=== PATIENT | male | born 1965 | race Two or more races ===

== ENCOUNTER 2017-11-04 11:55 | Emergency (ER) | payer MEDICAID ==
[2017-11-04] MEDS ORDERED: TDAP ADULT 0.5 ML INJ (BOOSTRIX) IM ONE (12:10)
--- NOTE | 2017-11-04 12:49 | EDPHY ---
General Time Seen by Provider: 11/04/17 12:32 Narrative: CHIEF COMPLAINT: Laceration to abdomen HISTORY OF PRESENT ILLNESS: Patient presents with complaints of accidental laceration to the abdomen. He was working in the yard on to [employer] when a knife he was using slipped off of a bottle. He accidentally cut himself in the abdomen. This is centrally just above the umbilicus and to the right of it. He has moderate pain at the site only. No generalized abdominal pain no fever chills. This happened within the past 2 hr today. No pulsatile bleeding. He does not know when his last tetanus was administered. He has no injury elsewhere. No other associated complaints or modifying factors. He denies work related injury. HPI obtained using the hospital's certified [place] supervisor modern languages at bedside in patient's room. TIME OF INJURY: Less than 2 hr ago TETANUS STATUS: Uncertain MEDICAL/SURGICAL/SOCIAL HISTORY: Asthma. No surgical history. Nonsmoker. Lives and works independently locally REVIEW OF SYSTEMS: Ten systems reviewed and are negative unless otherwise noted in the HPI EXAMINATION General Appearance: Alert, no distress Head: normocephalic, atraumatic Cardiovascular: Pulses normal throughout. Brisk cap refill Abdomen: Obese. There is a 2 cm laceration just above the umbilicus and to the right of midline. Nonpulsatile bleeding. No foreign body visualized. His abdomen is soft and nondistended elsewhere. There is pain only at the site of laceration. No guarding. No tympany rigidity. Benign abdominal examination otherwise. Neurological: A&O, sensory symmetric, strength symmetric Skin: Warm and dry, no rash. Abdominal laceration as above. Extremities: Nontender, no pedal edema DIFFERENTIAL DIAGNOSES: Including but not limited to simple laceration, complex laceration, laceration with penetrating injury, laceration with foreign body MDM: 12:35 p.m. Laceration to abdominal wall just right of midline. He has localized tenderness only. This is a very small laceration but there is possibility this was a puncture type laceration. His abdominal exam is benign otherwise. He has no tympany rigidity. Vital signs are within normal limits. I immediately discussed this with Dr. Velázquez due to the nature of the injury. She agrees that we do not need to make this patient a full trauma alert but would like a CT scan the abdomen and pelvis. I do feel this is reasonable based on his history and exam. This is currently being obtained at this time. 1:30 p.m. Notified by radiologist Dr. Leslie. CT scan of the abdomen pelvis reveals no acute findings of the peritoneum. There is a small amount of edema that correlates with the area of laceration. This does not communicate even to the level of the abdominal wall musculature. Laboratory studies are within normal limits as well. Proceed with irrigation and closure 2:15 p.m. Laceration of the abdominal has been closed without difficulty. It is well approximated. Wound care discussed. Patient will need to return here in 7-10 days for suture removal. Return sooner for signs of infection. Recommend follow up with primary care physician this week This was all done using the hospital's certified [place] supervisor modern languages at bedside in patient's room. PROCEDURE: Laceration repair Consent: Verbal Location: Abdominal wall, right of midline above the umbilicus Length of repair: 2 cm Complexity: Simple Layer involvement: Single Anesthesia: Local. 1% lidocaine with epinephrine. 5 mL Irrigation: Extensive Debridement: None Procedure description: Following good anesthesia, the wound was copiously irrigated. Wound bed was explored with a sterile glove, and there is no foreign body noted. Subcutaneous fat noted. I do not appreciate any preperitoneal fat or foreign body Wound borders were approximated well with good hemostasis. Tolerated well without complication. Suture/Staple material: 4-0 Prolene, 3 simple sutures Wound care: Routine as discussed Suture/Staple removal: 7-10 Days SUPERVISION: Patient was independently examined, but I discussed the case with my primary supervising physician Dr. Velázquez. ED Precautions: Worsening pain. Erythema, edema, cyanosis, pallor, paresthesia or anesthesia. - History Smoking Status: Former smoker - Objective Vital Signs: Initial Vital Signs Temperature (C) 98.1 F 11/04/17 12:04 Heart Rate 67 11/04/17 12:04 Respiratory Rate 16 11/04/17 12:04 Blood Pressure 131/100 H 11/04/17 12:04 O2 Sat (%) 96 11/04/17 12:04 O2 Delivery Mode Room Air Allergies/Adverse Reactions: aspirin Allergy (Severe, Verified 11/04/17 12:02) CLOSES AIRWAY ibuprofen [From Advil] Allergy (Severe, Verified 11/04/17 12:02) SOB/CP Penicillins Allergy (Severe, Verified 11/04/17 12:02) CLOSES AIRWAY Home Medications: Medication Instructions Recorded Proair Hfa 11/04/17 Laboratory Results: Laboratory Results 11/04/17 12:55 11/04/17 12:55 Medications Given: Discontinued Medications Diphtheria/Tetanus/Acell Pertussis (Boostrix) 0.5 ml IM .ONCE ONE Stop: 11/04/17 12:11 Last Admin: 11/04/17 12:19 Dose: 0.5 ml Sodium Chloride (Ns) 1,000 mls @ 0 mls/hr IV EDNOW ONE; Wide Open PRN Reason: Protocol Stop: 11/04/17 12:51 Last Admin: 11/04/17 12:52 Dose: 1,000 mls Departure - Departure Disposition: Home, Routine, Self-Care Clinical Impression: Laceration of abdomen Qualifiers: Encounter type: initial encounter Qualified Code(s): S31.119A - Laceration without foreign body of abdominal wall, unspecified quadrant without penetration into peritoneal cavity, initial encounter Condition: Good Instructions: Care For Your Stitches (DC), Laceration (ED) Additional Instructions: 1. Daily wound care with antibacterial wash and thin layer bacitracin 2. Keep wound clean, dry and covered 3. Follow up here in 7-10 days for suture removal 4. Return here for any abdominal pain, fever, redness, warmth or purulence from the wound site 1. Cuide la herida a diario con un lavado antibacterial y hayden capa delgada de bacitracin. 2. Mantenga la herida limpia, seca y cubierta 3. Tenga seguimiento aqu en 7-10 steiner para quitar los puntos 4. Regrese aqu por cualquier dolor abdominal, fiebre, rojez, calor o purulencia saliendo de la herida. Referrals: Charlotte Cee MD [Primary Care Provider] - As per Instructions Physician,Emergency Dept, [Medical Doctor] - As per Instructions (7-10 days for suture removal) Print Language: [place]
[2017-11-04] MEDS ORDERED: NS 1,000 ML IV ONE (12:50)
[2017-11-04] MEDS ORDERED: IOPAMIDOL (ISOVUE-300) 100 ML BTL ONE (13:06)
[2017-11-04 14:02] VITALS: BP 145/70
== END 2017-11-04 14:35 | disposition home or self-care (01) ==
PROC: 0HQ7XZZ Repair Abdomen Skin, External Approach (ICD-10-PCS; principal; 2017-11-04)
DX: S31.119A Laceration without foreign body of abdominal wall, unspecified quadrant without penetration into peritoneal cavity, initial encounter (principal); J45.909 Unspecified asthma, uncomplicated; E86.9 Volume depletion, unspecified; Z23 Encounter for immunization; Z87.891 Personal history of nicotine dependence; W26.0XXA Contact with knife, initial encounter; Y92.017 Garden or yard in single-family (private) house as the place of occurrence of the external cause; Y99.8 Other external cause status; Y93.89 Activity, other specified
CPT/HCPCS: 82947-QW; Q9967